=== PATIENT | male | born 1965 | race African-American/Black ===

== ENCOUNTER 2018-03-17 00:44 | Inpatient (IN) | payer OTHER ==
[~2018-03-17] VITALS: Ht 182.9 cm; Wt 90.5 kg
[2018-03-17 00:49] VITALS: Ht 182.9 cm; Wt 90.5 kg
[2018-03-17 01:58] LABS: CALCIUM 8.6 mg/dL (8.5-10.1); CARBON DIOXIDE 26.8 mmol/L (21-32); CREATININE SERUM 1.4 mg/dL (0.7-1.3); POTASSIUM SERUM 4.1 mmol/L (3.5-5.1)
[2018-03-17 02:03] LABS: ALBUMIN 3.2 g/dL (3.4-5.0); BILIRUBIN TOTAL 0.4 mg/dL (0.20-1.00); TOTAL PROTEIN, SERUM 7.1 g/dL (6.4-8.2)
[2018-03-17 02:26] LABS: BASOPHIL % 2.4 % (0-2); PLATELET COUNT 411 x10^3mcL (130-400); RED CELL DISTRIBUTION WIDTH 14.6 % (11.5-14.5)
[2018-03-17 03:55] LABS: MAGNESIUM 1.9 mg/dL (1.8-2.4); PHOSPHOROUS 4.7 mg/dL (2.5-4.9)
[2018-03-17 03:56] LABS: CHOLESTEROL/HDL RATIO 3.7
[2018-03-17 03:58] LABS: T3 TOTAL 0.95 ng/mL
[2018-03-17 04:02] LABS: FREE T4 1.37 ng/dL (0.76-1.46); FREE THYROXINE INDEX 2.4 ug/dL (1.4-4.5); T4(THYROXINE) 6.2 ug/dL (4.7-13.3)
[2018-03-17 04:19] LABS: AMPHETAMINE QUAL UR POSITIVE (See below); UA SPECIFIC GRAVITY 1.025 (1.005-1.035); microscopic required? YES; urine erythrocyte NEGATIVE (NEGATIVE)
[2018-03-17 04:26] VITALS: BP 125/79
[2018-03-17 04:31] VITALS: BP 137/102
[2018-03-17 08:51] VITALS: BP 135/89
[2018-03-17 13:02] VITALS: BP 146/100
[2018-03-17 16:52] VITALS: BP 142/108
[2018-03-17 21:17] VITALS: BP 131/101
[2018-03-18 05:07] VITALS: BP 136/101
[2018-03-18 06:47] VITALS: BP 133/92
[2018-03-18 06:56] LABS: BASOPHIL % 0.6 % (0-2); PLATELET COUNT 369 x10^3mcL (130-400)
[2018-03-18 06:59] LABS: RED CELL DISTRIBUTION WIDTH 16.3 % (11.5-14.5)
[2018-03-18 07:10] LABS: CALCIUM 8.4 mg/dL (8.5-10.1); CARBON DIOXIDE 29.3 mmol/L (21-32); CHLORIDE SERUM 104 mmol/L (98-107); CREATININE SERUM 1.3 mg/dL (0.7-1.3); GFR1 > 60 mL/min; GLUCOSE SERUM 231 mg/dL (74-106); MAGNESIUM 1.9 mg/dL (1.8-2.4); PHOSPHOROUS 5.1 mg/dL (2.5-4.9); POTASSIUM SERUM 4.1 mmol/L (3.5-5.1); SODIUM SERUM 139 mmol/L (136-145)
[2018-03-18 09:05] VITALS: BP 134/95
[2018-03-18] MEDS ORDERED: TOP50 PO (10:57)
[2018-03-18] MEDS ORDERED: LASIX40 MG PO (10:57)
[2018-03-18] MEDS ORDERED: ZES5 PO (10:57)
[2018-03-18 11:09] VITALS: BP 134/95
== END 2018-03-18 11:27 | disposition home or self-care (01) | DRG 384 ==
LOC: ED 00:44 → DU 02:47
PROVIDERS: Emergency Medicine; Internal Medicine
DX: S20.211A Contusion of right front wall of thorax, initial encounter (principal); N17.0 Acute kidney failure with tubular necrosis; I11.0 Hypertensive heart disease with heart failure; I42.0 Dilated cardiomyopathy; I50.40 Unspecified combined systolic (congestive) and diastolic (congestive) heart failure; E44.0 Moderate protein-calorie malnutrition; E11.65 Type 2 diabetes mellitus with hyperglycemia; J98.11 Atelectasis; D64.9 Anemia, unspecified; J45.909 Unspecified asthma, uncomplicated; F17.210 Nicotine dependence, cigarettes, uncomplicated; F19.10 Other psychoactive substance abuse, uncomplicated; Z68.28 Body mass index [BMI] 28.0-28.9, adult; W10.9XXA Fall (on) (from) unspecified stairs and steps, initial encounter; Y92.9 Unspecified place or not applicable
CPT/HCPCS: 82962; 83880; 84439; 94150; J1885; J1940; J2270; Q0092; Q9967

== ENCOUNTER 2018-08-16 13:51 | Inpatient (IN) | payer MEDICAID ==
[~2018-08-16] VITALS: Ht 182.9 cm; Wt 87.6 kg
[~2018-08-16 13:51] MED LIST: LASIX40 MG PO; TOP50 PO; ZES5 PO
[2018-08-16 16:15] LABS: PLATELET COUNT 325 x10^3mcL (130-400); RED CELL DISTRIBUTION WIDTH 16.6 % (11.5-14.5)
[2018-08-16 16:40] LABS: FREE T4 1.73 ng/dL (0.76-1.46); FREE THYROXINE INDEX 2.7 ug/dL (1.4-4.5)
[2018-08-16 16:49] LABS: CARBON DIOXIDE 22.2 mmol/L (21-32); CHLORIDE SERUM 105 mmol/L (98-107); CREATININE SERUM 1.3 mg/dL (0.7-1.3); GFR1 > 60 mL/min; GLUCOSE SERUM 431 mg/dL (74-106); POTASSIUM SERUM 4.2 mmol/L (3.5-5.1); SODIUM SERUM 140 mmol/L (136-145); T3 TOTAL 0.86 ng/mL
[2018-08-16 17:00] LABS: ALBUMIN 3.4 g/dL (3.4-5.0); ALKALINE PHOSPHATASE 106 U/L (46-116); ALT/SGPT 76 U/L (16-63); AST/SGOT 56 U/L (15-37); BILIRUBIN TOTAL 0.81 mg/dL (0.20-1.00); C REACTIVE PROTEIN 0.8 mg/dL (<=0.9); ERYTHROCYTE SED RATE 4 mm/hr (0-20)
[2018-08-16 17:29] LABS: CK-MB 4.4 ng/mL (0-3.6)
[2018-08-16 18:29] LABS: MAGNESIUM 2.1 mg/dL (1.8-2.4)
[2018-08-16 18:30] LABS: CHOLESTEROL/HDL RATIO 3.4
[2018-08-16 19:32] VITALS: BP 149/104
[2018-08-16 19:39] VITALS: Ht 182.9 cm; Wt 87.6 kg
[2018-08-16 20:54] VITALS: BP 137/94
[2018-08-17 04:36] VITALS: BP 127/88
[2018-08-17 04:50] VITALS: BP 119/68
[2018-08-17 06:22] LABS: BASOPHIL % 0.9 % (0-2); PLATELET COUNT 304 x10^3mcL (130-400)
[2018-08-17 06:23] LABS: RED CELL DISTRIBUTION WIDTH 15.9 % (11.5-14.5)
[2018-08-17 06:56] LABS: CALCIUM 7.8 mg/dL (8.5-10.1); CARBON DIOXIDE 26.5 mmol/L (21-32); CHLORIDE SERUM 104 mmol/L (98-107); CREATININE SERUM 1.1 mg/dL (0.7-1.3); GFR1 > 60 mL/min; GLUCOSE SERUM 210 mg/dL (74-106); MAGNESIUM 1.9 mg/dL (1.8-2.4); PHOSPHOROUS 4.3 mg/dL (2.5-4.9); POTASSIUM SERUM 3.4 mmol/L (3.5-5.1); SODIUM SERUM 140 mmol/L (136-145)
[2018-08-17 08:56] VITALS: BP 140/95
[2018-08-17 15:51] VITALS: BP 126/82
[2018-08-17 21:09] VITALS: BP 142/98
[2018-08-18 03:02] LABS: AMPHETAMINE QUAL UR NONE DETECTED (See below)
[2018-08-18 05:35] VITALS: BP 132/88
[2018-08-18 07:21] LABS: CALCIUM 8.3 mg/dL (8.5-10.1); CARBON DIOXIDE 27.7 mmol/L (21-32); CHLORIDE SERUM 104 mmol/L (98-107); CREATININE SERUM 1.2 mg/dL (0.7-1.3); GFR1 > 60 mL/min; GLUCOSE SERUM 242 mg/dL (74-106); SODIUM SERUM 140 mmol/L (136-145)
[2018-08-18 07:34] LABS: BASOPHIL % 0.6 % (0-2); PLATELET COUNT 325 x10^3mcL (130-400)
[2018-08-18 07:35] LABS: RED CELL DISTRIBUTION WIDTH 16.2 % (11.5-14.5)
[2018-08-18 08:03] VITALS: BP 144/96
[2018-08-18 12:28] VITALS: BP 131/64; BP 143/74
[2018-08-18 12:31] VITALS: BP 136/98
== END 2018-08-18 13:15 | disposition home or self-care (01) | DRG 133 ==
LOC: ED 13:51 → DU 17:53
PROVIDERS: Specialist; ADMIT Internal Medicine
DX: J96.01 Acute respiratory failure with hypoxia (principal); I50.43 Acute on chronic combined systolic (congestive) and diastolic (congestive) heart failure; J45.901 Unspecified asthma with (acute) exacerbation; E11.65 Type 2 diabetes mellitus with hyperglycemia; E83.51 Hypocalcemia; K72.90 Hepatic failure, unspecified without coma; I25.5 Ischemic cardiomyopathy; I10 Essential (primary) hypertension; F15.10 Other stimulant abuse, uncomplicated; F14.10 Cocaine abuse, uncomplicated; F12.10 Cannabis abuse, uncomplicated; Z59.0 Homelessness; Z91.14 Patient's other noncompliance with medication regimen; R74.0 Nonspecific elevation of levels of transaminase and lactic acid dehydrogenase [LDH]; Z68.26 Body mass index [BMI] 26.0-26.9, adult
CPT/HCPCS: 36600; 82962; 83880; 84439; 94150; G0480; J1940; J7620; Q0092